=== PATIENT | female | born 1985 | race Caucasian/White ===

== ENCOUNTER 2019-03-15 06:00 | Inpatient (IN) ==
[~2019-03-15 06:00] MED LIST: CITRIC ACID/SODIUM CITRATE 30 ML CUP PO ONE; CefOXitin Inj 2 GM in Sodium Chloride 0.9% 100 ML IV ONE; FAMOTIDINE 20 MG/2 ML VIAL IVP ONE; LIDOCAINE HCL 2 % 10 ML JELLY URO-JECT TOPICAL PRN; LIDOCAINE W/ SODIUM BICARB 0.5 ML SYR SUBD PRN; Lactated Ringers 1,000 ML PRIMARY IV ONE; Metoclopramide Inj 10 MG/2 ML VIAL IV ONE; Oxytocin 20 Units + LR 20 UNIT/1,000 ML BAG IV SCH
[2019-03-15 06:40] LABS: Hematocrit [HCT] 38.5 % (37.0-47.0); Hemoglobin [HGB] 12.8 g/dL (12.0-16.0); MEAN CORPUSCULAR HGB CONC 33.3 g/dL (33-37); MEAN CORPUSCULAR VOLUME 92 FL (81-99); MEAN PLATELET VOLUME 8.4 FL (7.4-12.2)
[2019-03-15] MEDS ORDERED: OXYTOCIN 10 UNIT/1 ML ONE (07:46)
[2019-03-15] MEDS ORDERED: Lactated Ringers 1,000 ML PRIMARY IV ONE (07:47)
[2019-03-15] MEDS: Lactated Ringers 1,000 ML PRIMARY IV SCH ×2 (07:52→11:28)
[2019-03-15] MEDS ORDERED: TRANEXAMIC ACID 1,000 MG / 10 ML VIAL ONE (08:01)
[2019-03-15] MEDS ORDERED: HYDROmorphone 2 MG/1 ML IVP PRN (09:24)
[2019-03-15] MEDS ORDERED: fentaNYL Inj 100 MCG/2 ML VIAL IVP PRN (09:24)
[2019-03-15] MEDS ORDERED: LIDOCAINE W/ SODIUM BICARB 0.5 ML SYR SUBD PRN (09:24)
[2019-03-15] MEDS ORDERED: ONDANSETRON 4 MG/2 ML VIAL IVP PRN ×2 (09:24→10:13)
[2019-03-15] MEDS ORDERED: Lactated Ringers 1,000 ML PRIMARY IV SCH (09:30)
[2019-03-15] MEDS ORDERED: Oxytocin 20 Units + LR 20 UNIT/1,000 ML BAG IV SCH (10:13)
[2019-03-15] MEDS ORDERED: Nalbuphine Inj 20 MG/ML Ampule IVP PRN (10:13)
[2019-03-15] MEDS ORDERED: CALCIUM CARBONATE 500 MG (TUMS) CHEWABLE TABLET PO PRN (10:13)
[2019-03-15] MEDS ORDERED: DIPH,PERTUSS,TET(ADACEL) VAC/PF 0.5 ML (Tdap) IM ONE (10:13)
[2019-03-15] MEDS ORDERED: HYDROmorphone 2 MG/1 ML IV PRN (10:13)
[2019-03-15] MEDS ORDERED: diphenhydrAMINE 50 MG/1 ML VIAL IV PRN (10:13)
[2019-03-15] MEDS ORDERED: BUTORPHANOL TARTRATE 2 MG/1 ML VIAL IVP PRN (10:13)
[2019-03-15] MEDS ORDERED: FAMOTIDINE 20 MG/2 ML VIAL IVP PRN (10:13)
[2019-03-15] MEDS ORDERED: LANOLIN HPA 40 GM TUBE TOPICAL PRN (10:13)
[2019-03-15] MEDS ORDERED: diphenhydrAMINE 25 MG CAPSULE PO PRN (10:13)
[2019-03-15] MEDS ORDERED: Naloxone Inj 0.01 MG, Sodium Chloride 0.9% vial 1 ML IVP PRN ×2 (10:13)
[2019-03-15] MEDS: KETOROLAC 15 MG/1 ML VIAL IVP SCH ×2 (11:16→17:21)
[2019-03-15] MEDS: D5-LR 1,000 ML PRIMARY IV SCH (11:17)
[2019-03-15] MEDS: oxyCODONE-ACETAMINOPHEN 5-325 TAB PO PRN ×2 (14:04→17:34)
[2019-03-16] MEDS: KETOROLAC 15 MG/1 ML VIAL IVP SCH ×3 (00:33→12:53)
[2019-03-16] MEDS: oxyCODONE-ACETAMINOPHEN 5-325 TAB PO PRN ×5 (00:33→21:23)
[2019-03-16 05:05] LABS: Hematocrit [HCT] 30.7 % (37.0-47.0); Hemoglobin [HGB] 10.1 g/dL (12.0-16.0); MEAN CORPUSCULAR VOLUME 8.5 FL (81-99); MEAN PLATELET VOLUME 8.5 FL (7.4-12.2); RED BLOOD COUNT 3.35 10^6/uL (4.20-5.40)
[2019-03-16] MEDS: Prenatal Multivitamin Tab 1 TAB TAB PO SCH (09:46)
[2019-03-16] MEDS: Senna/Docusate Tab 1 TAB TAB PO SCH ×2 (09:46→21:18)
[2019-03-16] MEDS: IBUPROFEN 800 MG TABLET PO SCH (19:19)
[2019-03-17] MEDS: IBUPROFEN 800 MG TABLET PO SCH ×2 (03:52→11:00)
[2019-03-17] MEDS: D5-LR 1,000 ML PRIMARY IV SCH (06:56)
[2019-03-17] MEDS: oxyCODONE-ACETAMINOPHEN 5-325 TAB PO PRN (07:37)
[2019-03-17] MEDS: Prenatal Multivitamin Tab 1 TAB TAB PO SCH (11:00)
[2019-03-17] MEDS: Senna/Docusate Tab 1 TAB TAB PO SCH (11:00)
[2019-03-17 18:39] VITALS: BP 126/64; RESP 16; TEMP 98.3; O2SAT 98
== END 2019-03-17 16:30 | disposition home or self-care (01) | DRG 785 ==
LOC: OBOR 06:00 → OBIP 09:49
PROVIDERS: ADMIT Family Medicine; ATTEND Family Medicine